=== PATIENT | male | born 1970 | race African-American/Black ===

== ENCOUNTER 2017-10-30 13:57 | Inpatient (IN) | payer MEDICAID, OTHER ==
[2017-10-30] MEDS: NA BICARBONATE 8.4% 50 ML SYG IV ×2 (14:01→15:23)
[2017-10-30] MEDS: SODIUM CHLORIDE 0.9% 1L BAG IV* (14:05)
[2017-10-30] MEDS: VECURONIUM 100 MG in DEXTROSE 5% 100 ML IV (14:12)
[2017-10-30] MEDS ORDERED: PROPOFOL 100 ML (14:13)
[2017-10-30] MEDS: PROPOFOL 100 ML IV (14:20)
[2017-10-30] MEDS: MIDAZOLAM (DRIP) 50 mg/50 mL 50 ML IV ×2 (14:30→15:32)
[2017-10-30 14:32] LABS: ABNORMAL IP MESSAGE 1; HEMATOCRIT 39.3 % (42.0-52.0); HEMOGLOBIN 12.6 g/dl (14.0-18.0); MEAN CORPUSCULAR HEMOGLOBIN 33.2 pg (29.0-33.0); MEAN CORPUSCULAR HGB CONC 32.1 g/dl (32.0-37.0); MEAN CORPUSCULAR VOLUME 103.7 fl (82.0-101.0); MEAN PLATELET VOLUME 9.5 fl (7.4-10.4); NUCLEATED RED BLOOD CELLS% 0.2 /100WBC (0.0-0.0); PLATELET COUNT 292 10^3/UL (140-415); POSITIVE DIFF @See below; RED BLOOD COUNT 3.79 10^6/ul (4.70-6.10); RED CELL DISTRIBUTION WIDTH 13.3 % (11.5-14.5)
[2017-10-30 14:32] LABS: WHITE BLOOD COUNT 18.8 10^3/ul (4.8-10.8)
[2017-10-30 14:37] LABS: AADO2 Arterial 520.5 mmHg (7.0-24.0); Arterial Base Excess -18.3 mmol/L (-3.0-3); Arterial Blood Gas Oxygen Sat 95.2 mmHG (95.0-98.0); Arterial COHb 0.3 % (0.0-3.0); Arterial Fraction of Oxyhgb 94.2 % (93.0-99.0); Arterial MetHb 0.7 % (0.0-1.5); Arterial Total Hemglobin 12.3 g/dl (12.0-18.0); Arterial pCO2 64.7 mmhg (35-45); MODE VENT - AC; Site Femoral
[2017-10-30 14:42] LABS: ADD MAN DIFF? YES
[2017-10-30 14:49] LABS: ALANINE AMINOTRANSFERASE 184 IU/L (13-69); ALBUMIN 2.3 g/dl (3.3-4.9); ALBUMIN/GLOBULIN RATIO 0.82; ALKALINE PHOSPHATASE 153 IU/L (42-121); ANION GAP 30 (8-16); BLOOD UREA NITROGEN 12 mg/dl (7-20); CALCIUM 7.2 mg/dl (8.4-10.2); CARBON DIOXIDE 16 mmol/L (21-31); CHLORIDE 104 mmol/L (97-110); CREATININE 1.32 mg/dl (0.61-1.24); GLUCOSE 177 mg/dl (70-220); MAGNESIUM 2.4 mg/dl (1.7-2.5); PHOSPHORUS 11.6 mg/dl (2.5-4.9); POTASSIUM 3.7 mmol/L (3.5-5.1); SODIUM 146 mmol/L (135-144); TOTAL PROTEIN 5.1 g/dl (6.1-8.1)
[2017-10-30 14:50] LABS: INR 1.46; PT RATIO 1.4
[2017-10-30 14:51] LABS: PARTIAL THROMBOPLASTIN TIME 32.9 Sec (25.0-35.0)
[2017-10-30 14:54] LABS: AMMONIA 69 umol/l (9-30)
[2017-10-30 14:56] LABS: ASPARTATE AMINO TRANSFERASE 651 IU/L (15-46)
[2017-10-30 15:00] LABS: ETHANOL < 10.0 mg/dl
[2017-10-30 15:01] LABS: TROPONIN-I < 0.012 ng/ml (0.00-0.12)
[2017-10-30 15:40] LABS: LACTIC ACID 20.5 mmol/L (0.5-2.0)
[2017-10-30 15:45] LABS: BAND NEUTROPHILS #M 3.1 10^3/ul (0.0-0.6); BAND NEUTROPHILS % (M) 17 % (0-4); EOSINOPHILS % (M) 1 % (0-7); LYMPHOCYTES #M 2.4 10^3/ul (0.8-2.9); LYMPHOCYTES % (M) 13 % (15-51); MONOCYTE #M 2.2 10^3/ul (0.3-0.9); MONOCYTES % (M) 12 % (0-11); PLATELET ESTIMATE NORMAL; REACTIVE LYMPHOCYTES #M 0.7 10^3/ul (0.0-0.0); REACTIVE LYMPHOCYTES% (M) 4 % (0-0); SEG NEUT #M 10.5 10^3/ul (1.7-7.5); SEGMENTED NEUTROPHILS (M) % 53 % (39-77); SMUDGE%M 7 % (0-0)
[2017-10-30] MEDS: SODIUM CHLORIDE 0.9% 500 ML BAG IV* (16:00)
[2017-10-30 16:07] LABS: SALICYLATE 11.8 mg/dl (5.0-30.0)
[2017-10-30 16:10] LABS: DIGOXIN 0.4 ng/ml (1.0-2.0)
[2017-10-30 16:25] LABS: ADD UMIC YES; UR ASCORBIC ACID 40 mg/dL (NEGATIVE); UR BILIRUBIN (Dip) 1+ mg/dL (NEGATIVE); UR BLOOD (Dip) 1+ mg/dL (NEGATIVE); UR CLARITY CLOUDY (CLEAR); UR COLOR AMBER (YELLOW); UR GLUCOSE (Dip) NEGATIVE (NEGATIVE); UR KETONES (Dip) NEGATIVE (NEGATIVE); UR LEUKOCYTE ESTERASE (Dip) NEGATIVE Leu/ul (NEGATIVE); UR MUCUS FEW /HPF (NONE SEEN); UR NITRITE (Dip) NEGATIVE (NEGATIVE); UR RBC 40 /HPF (0-5); UR SPECIFIC GRAVITY (Dip) 1.034 (1.003-1.030); UR TOTAL PROTEIN (Dip) 2+ mg/dl (NEGATIVE); UR UROBILINOGEN (Dip) 2+ mg/dL (NEGATIVE); UR WBC 26 /HPF (0-5)
[2017-10-30 16:43] LABS: CANNABINOIDS Positive (NEGATIVE)
[2017-10-30 16:44] LABS: AMPHETAMINE/METHAMPHETAMINE Negative (NEGATIVE); BARBITURATES Negative (NEGATIVE); BENZODIAZEPINES Negative (NEGATIVE); COCAINE Negative (NEGATIVE); OPIATES Negative (NEGATIVE)
[2017-10-30 16:44] LABS: LACTIC ACID 14.3 mmol/L (0.5-2.0)
[2017-10-30] MEDS: SOD CHLORIDE 0.9% IV (17:17)
[2017-10-30] MEDS: VECURONIUM IV (17:17)
[2017-10-30 17:20] LABS: AADO2 Arterial 628.2 mmHg (7.0-24.0); Allen Test ACCEPTAB; Arterial Base Excess -5.6 mmol/L (-3.0-3); Arterial Blood Gas Oxygen Sat 70.1 mmHG (95.0-98.0); Arterial COHb 0.1 % (0.0-3.0); Arterial Fraction of Oxyhgb 69.8 % (93.0-99.0); Arterial HCO3 20.5 mmol/L (22.0-26.0); Arterial MetHb 0.3 % (0.0-1.5); Arterial Total Hemglobin 14.3 g/dl (12.0-18.0); Arterial pCO2 42.3 mmhg (35-45); MODE VENT - AC; Site Right Radial
[2017-10-30] MEDS: FENTAnyl 50 MCG/ML VIAL IV (17:21)
[2017-10-30 18:42] LABS: LACTIC ACID 9.8 mmol/L (0.5-2.0)
[2017-10-30] MEDS ORDERED: ONDANSETRON 4 MG INJ IV (19:00)
[2017-10-30 22:14] LABS: Allen Test ACCEPTAB; Arterial Base Excess -7.5 mmol/L (-3.0-3); Arterial Blood Gas Oxygen Sat 99.7 mmHG (95.0-98.0); Arterial COHb 0.3 % (0.0-3.0); Arterial Fraction of Oxyhgb 99.1 % (93.0-99.0); Arterial HCO3 20.9 mmol/L (22.0-26.0); Arterial MetHb 0.3 % (0.0-1.5); Arterial Total Hemglobin 15.2 g/dl (12.0-18.0); Arterial pCO2 42.6 mmhg (35-45); MODE VENT - AC; Site Right Radial; Temperature 31.9 C
[2017-10-30 22:33] LABS: LACTIC ACID 9.4 mmol/L (0.5-2.0)
[2017-10-30] MEDS: CEFTRIAXONE 1 GM/50 ML (PMX) 50 ML IVPB (22:49)
[2017-10-30] MEDS: DEXTROSE 5%-0.45% NACL 1,000 ML IV (22:49)
[2017-10-30] MEDS: SOD CHLORIDE 0.9% 1,000 ML IV (22:50)
[2017-10-30] MEDS ORDERED: NORepinephrine 8MG/250 ML (PMX 250 ML (23:34)
[2017-10-31 00:10] LABS: ADD MAN DIFF? NO
[2017-10-31 00:17] LABS: BASOPHIL # 0.1 10^3/ul (0.0-0.1); BASOPHILS % 0.3 % (0.0-2.0); EOSINOPHILS # 0.2 10^3/ul (0.0-0.5); EOSINOPHILS % 0.7 % (0.0-7.0); HEMATOCRIT 44.5 % (42.0-52.0); HEMOGLOBIN 14.3 g/dl (14.0-18.0); LYMPHOCYTES % 9.7 % (15.0-51.0); MEAN CORPUSCULAR HEMOGLOBIN 32.5 pg (29.0-33.0); MEAN CORPUSCULAR HGB CONC 32.1 g/dl (32.0-37.0); MEAN CORPUSCULAR VOLUME 101.1 fl (82.0-101.0); MEAN PLATELET VOLUME 10.1 fl (7.4-10.4); MONOCYTE # 1.5 10^3/ul (0.3-0.9); MONOCYTES % 7.2 % (0.0-11.0); NEUTROPHIL # 16.4 10^3/ul (1.6-7.5); NEUTROPHILS % 80.8 % (39.0-77.0); PLATELET COUNT 301 10^3/UL (140-415); RED CELL DISTRIBUTION WIDTH 13.5 % (11.5-14.5)
[2017-10-31 00:17] LABS: WHITE BLOOD COUNT 20.4 10^3/ul (4.8-10.8)
[2017-10-31 00:21] LABS: INR 1.27; PROTIME 16.1 Sec (11.9-14.9); PT RATIO 1.3
[2017-10-31 00:22] LABS: PARTIAL THROMBOPLASTIN TIME 31.5 Sec (25.0-35.0)
[2017-10-31 00:28] LABS: ANION GAP 17 (8-16); BLOOD UREA NITROGEN 15 mg/dl (7-20); CALCIUM 6.8 mg/dl (8.4-10.2); CARBON DIOXIDE 25 mmol/L (21-31); CHLORIDE 107 mmol/L (97-110); CREATININE 1.13 mg/dl (0.61-1.24); GLUCOSE 272 mg/dl (70-220); LIPASE 46 U/L (23-300); MAGNESIUM 2.2 mg/dl (1.7-2.5); PHOSPHORUS 4.6 mg/dl (2.5-4.9); SODIUM 146 mmol/L (135-144)
[2017-10-31 00:33] LABS: AMYLASE < 30 U/L (11-123); POTASSIUM 2.7 mmol/L (3.5-5.1)
[2017-10-31 00:46] LABS: TROPONIN-I 0.258 ng/ml (0.00-0.12)
[2017-10-31] MEDS: SOD CHLORIDE 0.9% 1,000 ML IV ×2 (01:24→15:40)
[2017-10-31] MEDS ORDERED: POTASSIUM CHLORIDE 50 ML IVPB (01:30)
[2017-10-31] MEDS: NORepinephrine 8MG/250 ML (PMX 250 ML IV (02:13)
[2017-10-31] MEDS ORDERED: POTASSIUM CHLORIDE 100 ML (02:38)
[2017-10-31] MEDS: POTASSIUM CHLORIDE 40 MEQ in SOD CHLORIDE 0.45% 250 ML IVPB (02:53)
[2017-10-31] MEDS: DEXTROSE 5% IV ×3 (02:55→09:08)
[2017-10-31] MEDS: ACETYLCYSTEINE IV ×3 (02:55→09:08)
[2017-10-31 05:12] LABS: ADD MAN DIFF? NO; HAAIG REFLEX REFLEX FILED
[2017-10-31 05:23] LABS: BASOPHIL # 0.1 10^3/ul (0.0-0.1); BASOPHILS % 0.2 % (0.0-2.0); EOSINOPHILS % 0.2 % (0.0-7.0); HEMATOCRIT 48.4 % (42.0-52.0); HEMOGLOBIN 14.8 g/dl (14.0-18.0); LYMPHOCYTES # 1.5 10^3/ul (0.8-2.9); LYMPHOCYTES % 7.1 % (15.0-51.0); MEAN CORPUSCULAR HEMOGLOBIN 31.6 pg (29.0-33.0); MEAN CORPUSCULAR HGB CONC 30.6 g/dl (32.0-37.0); MEAN CORPUSCULAR VOLUME 103.4 fl (82.0-101.0); MEAN PLATELET VOLUME 9.6 fl (7.4-10.4); MONOCYTE # 0.9 10^3/ul (0.3-0.9); MONOCYTES % 4.5 % (0.0-11.0); NEUTROPHIL # 18.2 10^3/ul (1.6-7.5); NEUTROPHILS % 87.4 % (39.0-77.0); PLATELET COUNT 358 10^3/UL (140-415); RED BLOOD COUNT 4.68 10^6/ul (4.70-6.10); RED CELL DISTRIBUTION WIDTH 13.9 % (11.5-14.5)
[2017-10-31 05:23] LABS: WHITE BLOOD COUNT 20.8 10^3/ul (4.8-10.8)
[2017-10-31] MEDS ORDERED: AMIODARONE 900 MG in DEXTROSE 5% 482 ML IV (05:30)
[2017-10-31 05:39] LABS: INR 1.52; PROTIME 18.6 Sec (11.9-14.9); PT RATIO 1.5
[2017-10-31 05:40] LABS: PARTIAL THROMBOPLASTIN TIME 30.7 Sec (25.0-35.0)
[2017-10-31] MEDS: DEXTROSE 5%-0.45% NACL 1,000 ML IV ×3 (05:46→18:28)
[2017-10-31] MEDS: AMIODARONE 900 MG in DEXTROSE 5% 482 ML IV ×2 (05:47→11:00)
[2017-10-31] MEDS: PANTOPRAZOLE 40 MG INJ IV (05:47)
[2017-10-31 06:13] LABS: ALANINE AMINOTRANSFERASE 234 IU/L (13-69); ALBUMIN 2.4 g/dl (3.3-4.9); ALBUMIN/GLOBULIN RATIO 0.77; ALKALINE PHOSPHATASE 52 IU/L (42-121); ANION GAP 20 (8-16); ASPARTATE AMINO TRANSFERASE 429 IU/L (15-46); BLOOD UREA NITROGEN 15 mg/dl (7-20); CALCIUM 6.4 mg/dl (8.4-10.2); CARBON DIOXIDE 23 mmol/L (21-31); CHLORIDE 107 mmol/L (97-110); CREATININE 1.12 mg/dl (0.61-1.24); GLUCOSE 348 mg/dl (70-220); MAGNESIUM 2.1 mg/dl (1.7-2.5); PHOSPHORUS 7.3 mg/dl (2.5-4.9); POTASSIUM 4.3 mmol/L (3.5-5.1); SODIUM 146 mmol/L (135-144); TOTAL PROTEIN 5.5 g/dl (6.1-8.1)
[2017-10-31 06:15] LABS: TROPONIN-I 0.226 ng/ml (0.00-0.12)
[2017-10-31 06:21] LABS: LIPASE 153 U/L (23-300)
[2017-10-31 06:21] LABS: AMYLASE 71 U/L (11-123)
[2017-10-31 06:46] LABS: HEPATITIS B SURFACE ANTIGEN NEGATIVE (NEGATIVE)
[2017-10-31] MEDS: ACCU-CHEK XX ×17 (07:00→23:00)
[2017-10-31] MEDS ORDERED: DEXTROSE 50% 50 ML SYRINGE IV (07:00)
[2017-10-31 07:03] LABS: HEPATITIS B CORE ANTIBODY NEGATIVE (NEGATIVE)
[2017-10-31 07:11] LABS: HEMOGLOBIN A1C 5.7 % (0-5.9)
[2017-10-31] MEDS: PROPOFOL 100 ML IV ×2 (07:37→19:30)
[2017-10-31] MEDS ORDERED: ARTIFICIAL TEARS 15 ML OPH RIGHT EYE (08:30)
[2017-10-31] MEDS: VECURONIUM 100 MG in DEXTROSE 5% 100 ML IV (08:38)
[2017-10-31] MEDS: INSULIN HUMAN REGULAR 100 UNIT in SOD CHLORIDE 0.9% 99 ML IV ×2 (08:39→15:03)
[2017-10-31] MEDS ORDERED: LORAZEPAM 2 MG INJ (08:56)
[2017-10-31] MEDS ORDERED: ARTIFICIAL TEARS 15 ML OPH BOTH EYES (09:00)
[2017-10-31] MEDS: LORAZEPAM 2 MG INJ IV (09:15)
[2017-10-31] MEDS: MIDAZOLAM (DRIP) 50 mg/50 mL 50 ML IV ×3 (09:16→22:56)
[2017-10-31] MEDS: MULTIVITAMINS 10 ML, THIAMINE 100 MG, FOLIC ACID 1 MG in SOD CHLORIDE 0.9% 1,000 ML IVPB (09:25)
[2017-10-31] MEDS: ARTIFICIAL TEARS 15 ML OPH BOTH EYES ×4 (09:27→20:58)
[2017-10-31] MEDS: MAGNESIUM SULFATE 2 GM/50 ML 50 ML IVPB (11:37)
[2017-10-31] MEDS: OCULAR LUBRICANT 3.5 GM OPH OINT RIGHT EYE ×2 (13:14→17:24)
[2017-10-31 13:28] LABS: ADD MAN DIFF? NO
[2017-10-31 13:29] LABS: WHITE BLOOD COUNT 17.2 10^3/ul (4.8-10.8)
[2017-10-31 13:29] LABS: BASOPHIL # 0.1 10^3/ul (0.0-0.1); BASOPHILS % 0.3 % (0.0-2.0); EOSINOPHILS % 0.2 % (0.0-7.0); HEMATOCRIT 48.8 % (42.0-52.0); HEMOGLOBIN 15.6 g/dl (14.0-18.0); LYMPHOCYTES # 1.8 10^3/ul (0.8-2.9); LYMPHOCYTES % 10.5 % (15.0-51.0); MEAN CORPUSCULAR HEMOGLOBIN 33.1 pg (29.0-33.0); MEAN CORPUSCULAR VOLUME 103.6 fl (82.0-101.0); MEAN PLATELET VOLUME 9.7 fl (7.4-10.4); MONOCYTE # 0.3 10^3/ul (0.3-0.9); MONOCYTES % 1.9 % (0.0-11.0); NEUTROPHIL # 14.9 10^3/ul (1.6-7.5); NEUTROPHILS % 86.3 % (39.0-77.0); PLATELET COUNT 275 10^3/UL (140-415); RED BLOOD COUNT 4.71 10^6/ul (4.70-6.10); RED CELL DISTRIBUTION WIDTH 13.8 % (11.5-14.5)
[2017-10-31 13:46] LABS: PROTIME 18.4 Sec (11.9-14.9); PT RATIO 1.4
[2017-10-31 13:47] LABS: PARTIAL THROMBOPLASTIN TIME 30.4 Sec (25.0-35.0)
[2017-10-31 13:48] LABS: AMYLASE 67 U/L (11-123); ANION GAP 19 (8-16); BLOOD UREA NITROGEN 15 mg/dl (7-20); CALCIUM 6.7 mg/dl (8.4-10.2); CARBON DIOXIDE 23 mmol/L (21-31); CHLORIDE 108 mmol/L (97-110); CREATININE 1.14 mg/dl (0.61-1.24); GLUCOSE 241 mg/dl (70-220); LIPASE 218 U/L (23-300); PHOSPHORUS 5.3 mg/dl (2.5-4.9); POTASSIUM 3.2 mmol/L (3.5-5.1); SODIUM 147 mmol/L (135-144)
[2017-10-31 13:52] LABS: LACTIC ACID 7.8 mmol/L (0.5-2.0)
[2017-10-31 14:17] LABS: TROPONIN-I 0.128 ng/ml (0.00-0.12)
[2017-10-31 14:20] LABS: AADO2 Arterial 144.7 mmHg (7.0-24.0); Arterial Base Excess -10.1 mmol/L (-3.0-3); Arterial Blood Gas Oxygen Sat 98.8 mmHG (95.0-98.0); Arterial COHb 0.3 % (0.0-3.0); Arterial Fraction of Oxyhgb 98.1 % (93.0-99.0); Arterial HCO3 20.5 mmol/L (22.0-26.0); Arterial MetHb 0.4 % (0.0-1.5); Arterial Total Hemglobin 16.8 g/dl (12.0-18.0); Arterial pCO2 55.6 mmhg (35-45); MODE VENT - AC; Site Femoral; Temperature 33.5 C
[2017-10-31] MEDS: MAGNESIUM SULFATE 4 GM/100 ML 100 ML IVPB (17:24)
[2017-10-31 17:37] LABS: ADD MAN DIFF? NO
[2017-10-31 17:39] LABS: BASOPHILS % 0.2 % (0.0-2.0); EOSINOPHILS # 0.1 10^3/ul (0.0-0.5); EOSINOPHILS % 0.3 % (0.0-7.0); HEMATOCRIT 48.7 % (42.0-52.0); HEMOGLOBIN 15.7 g/dl (14.0-18.0); LYMPHOCYTES # 2.3 10^3/ul (0.8-2.9); LYMPHOCYTES % 15.6 % (15.0-51.0); MEAN CORPUSCULAR HEMOGLOBIN 32.9 pg (29.0-33.0); MEAN CORPUSCULAR HGB CONC 32.2 g/dl (32.0-37.0); MEAN CORPUSCULAR VOLUME 102.1 fl (82.0-101.0); MEAN PLATELET VOLUME 9.3 fl (7.4-10.4); MONOCYTE # 0.9 10^3/ul (0.3-0.9); MONOCYTES % 5.9 % (0.0-11.0); NEUTROPHIL # 11.5 10^3/ul (1.6-7.5); NEUTROPHILS % 77.5 % (39.0-77.0); PLATELET COUNT 225 10^3/UL (140-415); RED BLOOD COUNT 4.77 10^6/ul (4.70-6.10); RED CELL DISTRIBUTION WIDTH 13.7 % (11.5-14.5)
[2017-10-31 17:39] LABS: WHITE BLOOD COUNT 14.8 10^3/ul (4.8-10.8)
[2017-10-31 17:59] LABS: AMYLASE 75 U/L (11-123); ANION GAP 17 (8-16); BLOOD UREA NITROGEN 15 mg/dl (7-20); CARBON DIOXIDE 21 mmol/L (21-31); CHLORIDE 110 mmol/L (97-110); GLUCOSE 125 mg/dl (70-220); HEPATITIS C VIRAL ANTIBODY NEGATIVE (NEGATIVE); LIPASE 228 U/L (23-300); MAGNESIUM 2.4 mg/dl (1.7-2.5); PHOSPHORUS 2.9 mg/dl (2.5-4.9); SODIUM 145 mmol/L (135-144)
[2017-10-31 18:00] LABS: LACTIC ACID 5.4 mmol/L (0.5-2.0)
[2017-10-31] MEDS ORDERED: VANCOMYCIN IV PER PHARMACY XX (18:00)
[2017-10-31 18:01] LABS: CALCIUM 5.9 mg/dl (8.4-10.2); POTASSIUM 2.6 mmol/L (3.5-5.1)
[2017-10-31 18:02] LABS: INR 1.47; PROTIME 18.1 Sec (11.9-14.9); PT RATIO 1.4
[2017-10-31 18:13] LABS: TROPONIN-I 0.145 ng/ml (0.00-0.12)
[2017-10-31 18:14] LABS: PARTIAL THROMBOPLASTIN TIME 29.8 Sec (25.0-35.0)
[2017-10-31] MEDS: CEFTRIAXONE 1 GM/50 ML (PMX) 50 ML IVPB (18:26)
[2017-10-31] MEDS: DEXTROSE 50% 50 ML SYRINGE IV (18:41)
[2017-10-31] MEDS: POTASSIUM CHLORIDE 50 ML IVPB ×3 (19:47→22:48)
[2017-10-31] MEDS: VANCOMYCIN 1.5 GM in DEXTROSE 5% 500 ML IVPB (19:48)
[2017-11-01] MEDS: OCULAR LUBRICANT 3.5 GM OPH OINT RIGHT EYE ×4 (00:08→16:37)
[2017-11-01] MEDS: DEXTROSE 50% 50 ML SYRINGE IV (00:09)
[2017-11-01] MEDS: DEXTROSE 5%-0.45% NACL 1,000 ML IV ×3 (00:41→16:36)
[2017-11-01 00:46] LABS: WHITE BLOOD COUNT 19.1 10^3/ul (4.8-10.8)
[2017-11-01 00:46] LABS: ADD MAN DIFF? NO; BASOPHILS % 0.2 % (0.0-2.0); EOSINOPHILS % 0.2 % (0.0-7.0); HEMATOCRIT 47.9 % (42.0-52.0); HEMOGLOBIN 15.5 g/dl (14.0-18.0); LYMPHOCYTES # 2.4 10^3/ul (0.8-2.9); LYMPHOCYTES % 12.6 % (15.0-51.0); MEAN CORPUSCULAR HEMOGLOBIN 31.9 pg (29.0-33.0); MEAN CORPUSCULAR HGB CONC 32.4 g/dl (32.0-37.0); MEAN CORPUSCULAR VOLUME 98.6 fl (82.0-101.0); MEAN PLATELET VOLUME 9.6 fl (7.4-10.4); MONOCYTE # 1.3 10^3/ul (0.3-0.9); NEUTROPHIL # 15.2 10^3/ul (1.6-7.5); NEUTROPHILS % 79.5 % (39.0-77.0); NUCLEATED RED BLOOD CELLS% 0.1 /100WBC (0.0-0.0); PLATELET COUNT 250 10^3/UL (140-415); RED BLOOD COUNT 4.86 10^6/ul (4.70-6.10); RED CELL DISTRIBUTION WIDTH 13.6 % (11.5-14.5)
[2017-11-01] MEDS: ACCU-CHEK XX ×10 (01:00→09:00)
[2017-11-01] MEDS: ARTIFICIAL TEARS 15 ML OPH BOTH EYES ×6 (01:00→20:34)
[2017-11-01 01:08] LABS: AMYLASE 48 U/L (11-123); ANION GAP 12 (8-16); BLOOD UREA NITROGEN 16 mg/dl (7-20); CALCIUM 6.4 mg/dl (8.4-10.2); CARBON DIOXIDE 26 mmol/L (21-31); CHLORIDE 106 mmol/L (97-110); CREATININE 1.12 mg/dl (0.61-1.24); GLUCOSE 119 mg/dl (70-220); LIPASE 155 U/L (23-300); MAGNESIUM 3.1 mg/dl (1.7-2.5); PHOSPHORUS 2.2 mg/dl (2.5-4.9); POTASSIUM 3.3 mmol/L (3.5-5.1); SODIUM 141 mmol/L (135-144)
[2017-11-01 01:11] LABS: PROTIME 16.4 Sec (11.9-14.9); PT RATIO 1.3
[2017-11-01 01:12] LABS: PARTIAL THROMBOPLASTIN TIME 28.2 Sec (25.0-35.0)
[2017-11-01 01:22] LABS: TROPONIN-I 0.153 ng/ml (0.00-0.12)
[2017-11-01] MEDS: POTASSIUM CHLORIDE 50 ML IVPB (01:22)
[2017-11-01 01:25] LABS: LACTIC ACID 3.6 mmol/L (0.5-2.0)
[2017-11-01] MEDS: PANTOPRAZOLE 40 MG INJ IV (05:06)
[2017-11-01 05:12] LABS: AADO2 Arterial 96.7 mmHg (7.0-24.0); Allen Test ACCEPTAB; Arterial Base Excess -4.8 mmol/L (-3.0-3); Arterial Blood Gas Oxygen Sat 95.7 mmHG (95.0-98.0); Arterial COHb 0 % (0.0-3.0); Arterial Fraction of Oxyhgb 95.4 % (93.0-99.0); Arterial HCO3 21.2 mmol/L (22.0-26.0); Arterial MetHb 0.3 % (0.0-1.5); Arterial Total Hemglobin 17.1 g/dl (12.0-18.0); MODE VENT - AC; Site Right Radial; Temperature 35.2 C
[2017-11-01 05:32] LABS: ADD MAN DIFF? NO
[2017-11-01 05:36] LABS: WHITE BLOOD COUNT 16.7 10^3/ul (4.8-10.8)
[2017-11-01 05:36] LABS: BASOPHILS % 0.2 % (0.0-2.0); EOSINOPHILS % 0.1 % (0.0-7.0); HEMOGLOBIN 15.7 g/dl (14.0-18.0); LYMPHOCYTES # 1.8 10^3/ul (0.8-2.9); LYMPHOCYTES % 10.5 % (15.0-51.0); MEAN CORPUSCULAR HGB CONC 32.7 g/dl (32.0-37.0); MEAN CORPUSCULAR VOLUME 97.8 fl (82.0-101.0); MEAN PLATELET VOLUME 9.9 fl (7.4-10.4); MONOCYTE # 1.3 10^3/ul (0.3-0.9); MONOCYTES % 7.7 % (0.0-11.0); NEUTROPHIL # 13.5 10^3/ul (1.6-7.5); NUCLEATED RED BLOOD CELLS% 0.1 /100WBC (0.0-0.0); PLATELET COUNT 243 10^3/UL (140-415); RED BLOOD COUNT 4.91 10^6/ul (4.70-6.10); RED CELL DISTRIBUTION WIDTH 13.5 % (11.5-14.5)
[2017-11-01 05:58] LABS: INR 1.28; PARTIAL THROMBOPLASTIN TIME 30.9 Sec (25.0-35.0); PROTIME 16.2 Sec (11.9-14.9); PT RATIO 1.3
[2017-11-01 06:55] LABS: LACTIC ACID 3.2 mmol/L (0.5-2.0)
[2017-11-01] MEDS ORDERED: AMIODARONE 900 MG INJ (07:00)
[2017-11-01] MEDS ORDERED: MAGNESIUM SULFATE 1 GM/100 ML D5W IVPB (07:00)
[2017-11-01] MEDS ORDERED: DEXTROSE 5% WATER 500 ML BAG (07:00)
[2017-11-01] MEDS ORDERED: NA BICARBONATE 8.4% 50 ML SYG (07:00)
[2017-11-01] MEDS ORDERED: EPINEPHrine 0.1 MG/ML SYG (07:00)
[2017-11-01 07:07] LABS: AMYLASE 44 U/L (11-123); ANION GAP 14 (8-16); BLOOD UREA NITROGEN 15 mg/dl (7-20); CALCIUM 6.2 mg/dl (8.4-10.2); CARBON DIOXIDE 24 mmol/L (21-31); CHLORIDE 108 mmol/L (97-110); GLUCOSE 132 mg/dl (70-220); LIPASE 149 U/L (23-300); MAGNESIUM 2.9 mg/dl (1.7-2.5); PHOSPHORUS 2.6 mg/dl (2.5-4.9); POTASSIUM 3.9 mmol/L (3.5-5.1); SODIUM 142 mmol/L (135-144)
[2017-11-01 07:13] LABS: TROPONIN-I 0.203 ng/ml (0.00-0.12)
[2017-11-01] MEDS: PROPOFOL 100 ML IV ×2 (07:30→17:02)
[2017-11-01] MEDS: MULTIVITAMINS 10 ML, THIAMINE 100 MG, FOLIC ACID 1 MG in SOD CHLORIDE 0.9% 1,000 ML IVPB (08:17)
[2017-11-01] MEDS: MIDAZOLAM (DRIP) 50 mg/50 mL 50 ML IV ×3 (09:33→22:19)
[2017-11-01] MEDS: VANCOMYCIN 1.25 GM in SOD CHLORIDE 0.45% 250 ML IVPB ×2 (09:49→20:33)
[2017-11-01] MEDS: SOD CHLORIDE 0.9% 1,000 ML IV (09:49)
[2017-11-01] MEDS ORDERED: GLUCOSE GEL 15 GRAM TUBE PO ×2 (10:00)
[2017-11-01] MEDS ORDERED: DEXTROSE 50% 50 ML SYRINGE IV ×2 (10:00)
[2017-11-01] MEDS ORDERED: GLUCOSE GEL 15 GRAM TUBE BUCCAL (10:00)
[2017-11-01] MEDS ORDERED: GLUCAGON 1 MG INJ IM (10:00)
[2017-11-01 11:43] LABS: ADD MAN DIFF? NO
[2017-11-01 11:47] LABS: BASOPHIL # 0.1 10^3/ul (0.0-0.1); BASOPHILS % 0.3 % (0.0-2.0); EOSINOPHILS % 0.1 % (0.0-7.0); HEMATOCRIT 45.1 % (42.0-52.0); HEMOGLOBIN 15.1 g/dl (14.0-18.0); LYMPHOCYTES # 1.9 10^3/ul (0.8-2.9); LYMPHOCYTES % 9.4 % (15.0-51.0); MEAN CORPUSCULAR HEMOGLOBIN 32.6 pg (29.0-33.0); MEAN CORPUSCULAR HGB CONC 33.5 g/dl (32.0-37.0); MEAN CORPUSCULAR VOLUME 97.4 fl (82.0-101.0); MEAN PLATELET VOLUME 9.7 fl (7.4-10.4); MONOCYTE # 1.4 10^3/ul (0.3-0.9); MONOCYTES % 6.8 % (0.0-11.0); NEUTROPHIL # 16.6 10^3/ul (1.6-7.5); NEUTROPHILS % 82.7 % (39.0-77.0); NUCLEATED RED BLOOD CELLS% 0.2 /100WBC (0.0-0.0); PLATELET COUNT 232 10^3/UL (140-415); RED BLOOD COUNT 4.63 10^6/ul (4.70-6.10); RED CELL DISTRIBUTION WIDTH 13.6 % (11.5-14.5)
[2017-11-01] MEDS: LORAZEPAM 2 MG INJ IV ×2 (12:04→17:14)
[2017-11-01] MEDS: LIDOCAINE 1% (MPF) 5 ML VIAL SC (12:05)
[2017-11-01 12:17] LABS: ANION GAP 11 (8-16)
[2017-11-01 12:24] LABS: INR 1.24; PROTIME 15.8 Sec (11.9-14.9); PT RATIO 1.2
[2017-11-01 12:27] LABS: PARTIAL THROMBOPLASTIN TIME 30.4 Sec (25.0-35.0)
[2017-11-01 12:30] LABS: AMYLASE < 30 U/L (11-123); BLOOD UREA NITROGEN 16 mg/dl (7-20); CALCIUM 6.5 mg/dl (8.4-10.2); CARBON DIOXIDE 23 mmol/L (21-31); CHLORIDE 110 mmol/L (97-110); CREATININE 1.14 mg/dl (0.61-1.24); GLUCOSE 142 mg/dl (70-220); LIPASE 220 U/L (23-300); MAGNESIUM 2.6 mg/dl (1.7-2.5); POTASSIUM 3.9 mmol/L (3.5-5.1); SODIUM 140 mmol/L (135-144)
[2017-11-01 12:34] LABS: TROPONIN-I 0.267 ng/ml (0.00-0.12)
[2017-11-01 12:36] LABS: LACTIC ACID 3.1 mmol/L (0.5-2.0)
[2017-11-01] MEDS: INSULIN ASPART [NOVOLOG] 3 ML PEN SC ×3 (13:00→20:34)
[2017-11-01] MEDS: LEVETIRACETAM 1500 MG (PMX) 100 ML IVPB (16:33)
[2017-11-02] MEDS: LEVETIRACETAM 1500 MG (PMX) 100 ML IVPB ×3 (00:12→21:07)
[2017-11-02] MEDS: OCULAR LUBRICANT 3.5 GM OPH OINT RIGHT EYE ×4 (00:12→17:05)
[2017-11-02] MEDS: LORAZEPAM 2 MG INJ IV ×2 (00:12→04:38)
[2017-11-02] MEDS: ARTIFICIAL TEARS 15 ML OPH BOTH EYES ×6 (00:12→21:07)
[2017-11-02] MEDS: INSULIN ASPART [NOVOLOG] 3 ML PEN SC ×6 (00:38→21:14)
[2017-11-02] MEDS: ACCU-CHEK XX (02:00)
[2017-11-02] MEDS: MIDAZOLAM (DRIP) 50 mg/50 mL 50 ML IV ×4 (03:19→19:39)
[2017-11-02] MEDS: DEXTROSE 5%-0.45% NACL 1,000 ML IV ×2 (03:20→15:00)
[2017-11-02] MEDS: PANTOPRAZOLE 40 MG INJ IV (05:08)
[2017-11-02 06:19] LABS: VANCOMYCIN,TROUGH 18.5 ug/ml (10.0-20.0)
[2017-11-02] MEDS: PROPOFOL 100 ML IV ×2 (06:39→12:08)
[2017-11-02] MEDS: MULTIVITAMINS 10 ML, THIAMINE 100 MG, FOLIC ACID 1 MG in SOD CHLORIDE 0.9% 1,000 ML IVPB (08:20)
[2017-11-02] MEDS: VANCOMYCIN 1.25 GM in SOD CHLORIDE 0.45% 250 ML IVPB ×2 (09:16→21:07)
[2017-11-02 09:18] LABS: WHITE BLOOD COUNT 23.2 10^3/ul (4.8-10.8)
[2017-11-02 09:18] LABS: ABNORMAL IP MESSAGE 1; HEMATOCRIT 34.1 % (42.0-52.0); HEMOGLOBIN 11.3 g/dl (14.0-18.0); MEAN CORPUSCULAR HEMOGLOBIN 32.5 pg (29.0-33.0); MEAN CORPUSCULAR HGB CONC 33.1 g/dl (32.0-37.0); MEAN PLATELET VOLUME 11.1 fl (7.4-10.4); NUCLEATED RED BLOOD CELLS% 0.1 /100WBC (0.0-0.0); PLATELET COUNT 161 10^3/UL (140-415); POSITIVE DIFF @See below; RED BLOOD COUNT 3.48 10^6/ul (4.70-6.10); RED CELL DISTRIBUTION WIDTH 14.3 % (11.5-14.5)
[2017-11-02 09:21] LABS: ADD MAN DIFF? YES
[2017-11-02 09:22] LABS: ALANINE AMINOTRANSFERASE 115 IU/L (13-69); ALBUMIN 1.6 g/dl (3.3-4.9); ALBUMIN/GLOBULIN RATIO 0.66; ALKALINE PHOSPHATASE 182 IU/L (42-121); ANION GAP 11 (8-16); ASPARTATE AMINO TRANSFERASE 56 IU/L (15-46); BLOOD UREA NITROGEN 19 mg/dl (7-20); CARBON DIOXIDE 20 mmol/L (21-31); CHLORIDE 100 mmol/L (97-110); CREATININE 1.17 mg/dl (0.61-1.24); POTASSIUM 3.8 mmol/L (3.5-5.1); SODIUM 127 mmol/L (135-144)
[2017-11-02 09:25] LABS: GLUCOSE 580 mg/dl (70-220)
[2017-11-02 09:27] LABS: CALCIUM 5.7 mg/dl (8.4-10.2)
[2017-11-02 10:23] LABS: ADD MAN DIFF? NO
[2017-11-02 10:26] LABS: BASOPHILS % 0.2 % (0.0-2.0); EOSINOPHILS # 0.1 10^3/ul (0.0-0.5); EOSINOPHILS % 0.2 % (0.0-7.0); HEMATOCRIT 35.6 % (42.0-52.0); HEMOGLOBIN 11.8 g/dl (14.0-18.0); LYMPHOCYTES # 3.5 10^3/ul (0.8-2.9); LYMPHOCYTES % 14.8 % (15.0-51.0); MEAN CORPUSCULAR HEMOGLOBIN 32.2 pg (29.0-33.0); MEAN CORPUSCULAR HGB CONC 33.1 g/dl (32.0-37.0); MEAN CORPUSCULAR VOLUME 97.3 fl (82.0-101.0); MEAN PLATELET VOLUME 10.1 fl (7.4-10.4); MONOCYTE # 1.4 10^3/ul (0.3-0.9); NEUTROPHIL # 18.3 10^3/ul (1.6-7.5); NEUTROPHILS % 77.7 % (39.0-77.0); NUCLEATED RED BLOOD CELLS% 0.2 /100WBC (0.0-0.0); PLATELET COUNT 170 10^3/UL (140-415); POSITIVE DIFF @See below; RED BLOOD COUNT 3.66 10^6/ul (4.70-6.10); RED CELL DISTRIBUTION WIDTH 14.1 % (11.5-14.5)
[2017-11-02 10:26] LABS: WHITE BLOOD COUNT 23.5 10^3/ul (4.8-10.8)
[2017-11-02 10:38] LABS: BAND NEUTROPHILS #M 1.1 10^3/ul (0.0-0.6); BAND NEUTROPHILS % (M) 5 % (0-4); BURR CELLS 1+ (0-0); GIANT THROMBO% (M) 1 % (0-0); LYMPHOCYTES #M 1.8 10^3/ul (0.8-2.9); LYMPHOCYTES % (M) 8 % (15-51); MONOCYTES % (M) 9 % (0-11); PLATELET ESTIMATE NORMAL; POIKILOCYTOSIS 1+ (0-0); POLYCHROMASIA 1+ (0-0); SEG NEUT #M 18.4 10^3/ul (1.6-7.5); SEGMENTED NEUTROPHILS (M) % 78 % (39-77); SMUDGE%M 7 % (0-0)
[2017-11-02 11:02] LABS: ALANINE AMINOTRANSFERASE 113 IU/L (13-69); ALBUMIN 1.9 g/dl (3.3-4.9); ALBUMIN/GLOBULIN RATIO 0.73; ALKALINE PHOSPHATASE 182 IU/L (42-121); ANION GAP 10 (8-16); ASPARTATE AMINO TRANSFERASE 50 IU/L (15-46); BLOOD UREA NITROGEN 23 mg/dl (7-20); CALCIUM 6.6 mg/dl (8.4-10.2); CARBON DIOXIDE 23 mmol/L (21-31); CHLORIDE 109 mmol/L (97-110); CREATININE 1.23 mg/dl (0.61-1.24); GLUCOSE 253 mg/dl (70-220); PHOSPHORUS 2.7 mg/dl (2.5-4.9); POTASSIUM 4.1 mmol/L (3.5-5.1); SODIUM 138 mmol/L (135-144); TOTAL PROTEIN 4.5 g/dl (6.1-8.1)
[2017-11-02 11:03] LABS: MAGNESIUM 2.6 mg/dl (1.7-2.5)
[2017-11-02 11:14] LABS: CREATINE KINASE 57 IU/L (23-200)
[2017-11-02 11:15] LABS: CK-MB 3.41 ng/ml (0.0-2.4)
[2017-11-02] MEDS ORDERED: FOSPHENYTOIN (PE) 200 MG in SOD CHLORIDE 0.9% 50 ML IVPB (12:30)
[2017-11-02] MEDS ORDERED: FOSPHENYTOIN 100 MG PE/2ML INJ IV (12:30)
[2017-11-02] MEDS: PHENYTOIN 100 MG INJ IV ×2 (13:09→22:40)
[2017-11-02] MEDS: FOSPHENYTOIN (PE) 1,000 MG in SOD CHLORIDE 0.9% 80 ML IVPB (13:50)
[2017-11-02] MEDS: TRIAMCINOLONE ACET 0.1% 15 GM CR TOP ×2 (15:00→21:08)
[2017-11-02] MEDS: SOD CHLORIDE 0.9% 1,000 ML IV (17:05)
[2017-11-03] MEDS: OCULAR LUBRICANT 3.5 GM OPH OINT RIGHT EYE ×4 (00:49→17:01)
[2017-11-03] MEDS: ARTIFICIAL TEARS 15 ML OPH BOTH EYES ×6 (00:49→22:11)
[2017-11-03] MEDS: MIDAZOLAM (DRIP) 50 mg/50 mL 50 ML IV ×6 (01:01→22:41)
[2017-11-03] MEDS: ACCU-CHEK XX (01:48)
[2017-11-03] MEDS: INSULIN ASPART [NOVOLOG] 3 ML PEN SC ×6 (01:49→21:00)
[2017-11-03] MEDS: PROPOFOL 100 ML IV ×2 (03:07→16:51)
[2017-11-03] MEDS: PHENYTOIN 100 MG INJ IV ×3 (05:27→22:18)
[2017-11-03] MEDS: PANTOPRAZOLE 40 MG INJ IV (05:27)
[2017-11-03 05:32] LABS: ADD MAN DIFF? NO
[2017-11-03 05:40] LABS: WHITE BLOOD COUNT 20.7 10^3/ul (4.8-10.8)
[2017-11-03 05:40] LABS: BASOPHILS % 0.2 % (0.0-2.0); EOSINOPHILS # 0.2 10^3/ul (0.0-0.5); EOSINOPHILS % 0.9 % (0.0-7.0); HEMATOCRIT 33.9 % (42.0-52.0); HEMOGLOBIN 11.6 g/dl (14.0-18.0); LYMPHOCYTES # 3.1 10^3/ul (0.8-2.9); LYMPHOCYTES % 14.8 % (15.0-51.0); MEAN CORPUSCULAR HEMOGLOBIN 32.9 pg (29.0-33.0); MEAN CORPUSCULAR HGB CONC 34.2 g/dl (32.0-37.0); MEAN PLATELET VOLUME 10.2 fl (7.4-10.4); MONOCYTE # 0.8 10^3/ul (0.3-0.9); NEUTROPHIL # 16.2 10^3/ul (1.6-7.5); NEUTROPHILS % 78.5 % (39.0-77.0); NUCLEATED RED BLOOD CELLS% 0.1 /100WBC (0.0-0.0); PLATELET COUNT 154 10^3/UL (140-415); POSITIVE DIFF @See below; RED BLOOD COUNT 3.53 10^6/ul (4.70-6.10); RED CELL DISTRIBUTION WIDTH 14.1 % (11.5-14.5)
[2017-11-03 06:11] LABS: ANION GAP 7 (8-16); BLOOD UREA NITROGEN 23 mg/dl (7-20); CALCIUM 7.4 mg/dl (8.4-10.2); CARBON DIOXIDE 26 mmol/L (21-31); CHLORIDE 110 mmol/L (97-110); CREATININE 1.05 mg/dl (0.61-1.24); GLUCOSE 224 mg/dl (70-220); SODIUM 139 mmol/L (135-144)
[2017-11-03] MEDS: SOD CHLORIDE 0.9% 1,000 ML IV ×2 (06:42→19:54)
[2017-11-03] MEDS: LEVETIRACETAM 1500 MG (PMX) 100 ML IVPB ×2 (08:19→22:11)
[2017-11-03] MEDS: TRIAMCINOLONE ACET 0.1% 15 GM CR TOP ×3 (08:19→14:54)
[2017-11-03] MEDS: VANCOMYCIN 1.25 GM in SOD CHLORIDE 0.45% 250 ML IVPB ×2 (08:40→19:54)
[2017-11-03] MEDS: MULTIVITAMINS 10 ML, THIAMINE 100 MG, FOLIC ACID 1 MG in SOD CHLORIDE 0.9% 1,000 ML IVPB (09:21)
[2017-11-03] MEDS ORDERED: INSULIN ASPART [NOVOLOG] 3 ML PEN SC (14:00)
[2017-11-03] MEDS: NACL 0.9% 3 ML SYG IV (19:56)
[2017-11-04] MEDS: OCULAR LUBRICANT 3.5 GM OPH OINT RIGHT EYE ×4 (00:38→18:37)
[2017-11-04] MEDS: ARTIFICIAL TEARS 15 ML OPH BOTH EYES ×6 (00:39→22:38)
[2017-11-04] MEDS: INSULIN ASPART [NOVOLOG] 3 ML PEN SC ×6 (00:51→21:00)
[2017-11-04] MEDS: ACCU-CHEK XX (00:52)
[2017-11-04] MEDS: MIDAZOLAM (DRIP) 50 mg/50 mL 50 ML IV ×4 (04:24→19:52)
[2017-11-04] MEDS: PANTOPRAZOLE 40 MG INJ IV (05:43)
[2017-11-04] MEDS: PHENYTOIN 100 MG INJ IV ×3 (05:43→22:00)
[2017-11-04] MEDS: PROPOFOL 100 ML IV ×2 (06:53→22:00)
[2017-11-04 08:51] LABS: VANCOMYCIN,TROUGH 20.6 ug/ml (10.0-20.0)
[2017-11-04] MEDS: LEVETIRACETAM 1500 MG (PMX) 100 ML IVPB ×2 (10:04→21:00)
[2017-11-04] MEDS: TRIAMCINOLONE ACET 0.1% 15 GM CR TOP ×3 (10:05→22:39)
[2017-11-04] MEDS: MULTIVITAMINS 10 ML, THIAMINE 100 MG, FOLIC ACID 1 MG in SOD CHLORIDE 0.9% 1,000 ML IVPB (10:07)
[2017-11-04 10:09] LABS: ALANINE AMINOTRANSFERASE 77 IU/L (13-69); ALBUMIN 1.6 g/dl (3.3-4.9); ALKALINE PHOSPHATASE 255 IU/L (42-121); ASPARTATE AMINO TRANSFERASE 53 IU/L (15-46); TOTAL PROTEIN 3.8 g/dl (6.1-8.1)
[2017-11-04] MEDS: CEFTRIAXONE 1 GM/50 ML (PMX) 50 ML IVPB (15:21)
[2017-11-04] MEDS: LACOSAMIDE (100 MG/10 ML PO SYR) NGT ×2 (15:22→22:03)
[2017-11-04] MEDS ORDERED: VANCOMYCIN 1.5 GM in DEXTROSE 5% 500 ML IVPB (18:00)
[2017-11-04] MEDS: SOD CHLORIDE 0.9% 1,000 ML IV (19:37)
[2017-11-04] MEDS ORDERED: DIMETHICONE STICK TOP (21:00)
[2017-11-04] MEDS: morphine (DRIP) 100 MG/100 ML 100 ML IV (22:35)
[2017-11-05] MEDS: morphine (DRIP) 100 MG/100 ML 100 ML IV ×2 (06:03→12:01)
== END 2017-11-05 21:31 | disposition expired | DRG 917 ==
LOC: MS1 11-05 08:12 → E/R 13:57 → ICU 17:56
PROC: 5A1955Z Respiratory Ventilation, Greater than 96 Consecutive Hours (ICD-10-PCS; principal; 2017-10-30)
PROC: 5A12012 Performance of Cardiac Output, Single, Manual (ICD-10-PCS; 2017-10-30)
PROC: 06HM33Z Insertion of Infusion Device into Right Femoral Vein, Percutaneous Approach (ICD-10-PCS; 2017-10-30)
PROC: 5A2204Z Restoration of Cardiac Rhythm, Single (ICD-10-PCS; 2017-10-30)
PROC: 5A12012 Performance of Cardiac Output, Single, Manual (ICD-10-PCS; 2017-10-30)
PROC: 02HV33Z Insertion of Infusion Device into Superior Vena Cava, Percutaneous Approach (ICD-10-PCS; 2017-11-01)
DX: T45.0X2A Poisoning by antiallergic and antiemetic drugs, intentional self-harm, initial encounter (principal); A41.01 Sepsis due to Methicillin susceptible Staphylococcus aureus; I46.8 Cardiac arrest due to other underlying condition; J96.01 Acute respiratory failure with hypoxia; R65.21 Severe sepsis with septic shock; N39.0 Urinary tract infection, site not specified; E87.0 Hyperosmolality and hypernatremia; N17.9 Acute kidney failure, unspecified; E87.2 Acidosis; G93.1 Anoxic brain damage, not elsewhere classified; I42.9 Cardiomyopathy, unspecified; I45.81 Long QT syndrome; K70.10 Alcoholic hepatitis without ascites; T43.222A Poisoning by selective serotonin reuptake inhibitors, intentional self-harm, initial encounter; T38.1X2A Poisoning by thyroid hormones and substitutes, intentional self-harm, initial encounter; T42.4X2A Poisoning by benzodiazepines, intentional self-harm, initial encounter; T50.992A Poisoning by other drugs, medicaments and biological substances, intentional self-harm, initial encounter; E78.5 Hyperlipidemia, unspecified; E11.9 Type 2 diabetes mellitus without complications; F32.9 Major depressive disorder, single episode, unspecified; F12.90 Cannabis use, unspecified, uncomplicated; F10.20 Alcohol dependence, uncomplicated; F17.210 Nicotine dependence, cigarettes, uncomplicated; G40.909 Epilepsy, unspecified, not intractable, without status epilepticus; I10 Essential (primary) hypertension; L40.9 Psoriasis, unspecified; R40.2432 Glasgow coma scale score 3-8, at arrival to emergency department; Z90.01 Acquired absence of eye; Z91.5 Personal history of self-harm; Z91.14 Patient's other noncompliance with medication regimen; Z79.84 Long term (current) use of oral hypoglycemic drugs
CPT/HCPCS: 36415; 36569; 36600; 70450; 71045; 76700; 76937; 80048; 80053; 80076; 80162; 80202; 80306; 80307; 81001; 82140; 82150; 82550; 82553; 82803; 82962; 83036; 83605; 83690; 83735; 84100; 84484; 85025; 85384; 85610; 85730; 86704; 86709; 86803; 87040; 87045; 87075; 87081; 87086; 87340; 92950; 93005; 93306; 94002; 94003; 94770; 95819; 96374; 96376; 99291-25